=== PATIENT | female | born 1990 | race American Indian/Alaskan Native ===

== ENCOUNTER 2017-07-23 12:23 | Emergency (ER) | payer SELFPAY ==
[2017-07-23 13:05] LABS: Basophils # (Auto) 0.1 K/mm3 (0.0-0.1); Basophils % (Auto) 0.3 % (0.0-1.8); Eosinophils % (Auto) 0.1 % (0.0-4.3); Hematocrit 39.6 % (30.3-42.9); Hemoglobin 13.9 gm/dl (10.1-14.3); Lymphocytes # (Auto) 2.4 K/mm3 (1.2-5.4); Lymphocytes % (Auto) 13.3 % (13.4-35.0); Mean Corpuscular HGB Conc 35 % (30-34); Mean Corpuscular Hemoglobin 32 pg (28-32); Mean Corpuscular Volume 91 fl (79-97); Monocytes # (Auto) 1.2 K/mm3 (0.0-0.8); Monocytes % (Auto) 6.7 % (0.0-7.3); Platelet Count 266 K/mm3 (140-440); Red Blood Count 4.36 M/mm3 (3.65-5.03); Red Cell Distribution Width 13.8 % (13.2-15.2)
[2017-07-23] MEDS ORDERED: ZOFRAN ODT ONE (13:09)
[2017-07-23 13:27] LABS: Alanine Aminotransferase 14 units/L (7-56); Albumin 4.6 g/dL (3.9-5); BUN/Creatinine Ratio 19; Blood Urea Nitrogen 13 mg/dL (7-17); Calcium 9.6 mg/dL (8.4-10.2); Hemolysis Index 7; Lipase 22 units/L (13-60)
[2017-07-23] MEDS ORDERED: ZOFRAN IV ONE ×2 (14:56→16:01)
[2017-07-23] MEDS ORDERED: PEPCID IV ONE (16:01)
[2017-07-23] MEDS ORDERED: MORPHINE IV ONE ×2 (16:01→17:50)
[2017-07-23] MEDS ORDERED: REGLAN IV ONE (16:02)
[2017-07-23] MEDS ORDERED: K-DUR PO ONE (16:02)
[2017-07-23] MEDS ORDERED: BENADRYL IV ONE (16:02)
--- NOTE | 2017-07-23 16:10 | Emergency Department Report ---
Blank Doc - Documentation Documentation: 26-year-old female with no symptoms in past medical or surgical history presents to the hospital complaints of continued nausea, vomiting, and diarrhea for the past 4 days. Patient now stating she's having blood streaked vomitus. Vomiting is worsening diarrhea. She complains of epigastric abdominal pain that is severe in intensity, constant, worse with palpation. Patient was seen at another hospital [facility] last night and had a CT head, CT abdomen and pelvis, received IV fluids and nausea medication. Patient states that imaging tests were negative, she felt better after discharge, and her diagnosis was gastritis. She was prescribed 2 medications including a nausea medication which she has not yet filled because she did not have a ride. She felt worse today so she came back to the hospital. labs reviewed mag added ua pending orders: zofran, reglan, benadryl, morphine, Pepcid, NS Mid-level to follow
[2017-07-23] MEDS ORDERED: D5NS 1,000 ML IV SCH (17:00)
--- NOTE | 2017-07-23 17:58 | Emergency Department Report ---
ED N/V/D HPI - General Chief complaint: Abdominal Pain Stated complaint: ABD PAIN Time Seen by Provider: 07/23/17 15:24 Source: patient, family Mode of arrival: Wheelchair Limitations: No Limitations - History of Present Illness Initial comments: 26-year-old female with no symptoms in past medical or surgical history presents to the hospital complaints of continued nausea, vomiting, and diarrhea for the past 4 days. Patient now stating she's having blood streaked vomitus. Vomiting is worsening diarrhea. She complains of epigastric abdominal pain that is severe in intensity, constant, worse with palpation. Patient was seen at another hospital [facility] last night and had a CT head, CT abdomen and pelvis, received IV fluids and nausea medication. Patient states that imaging tests were negative, she felt better after discharge, and her diagnosis was gastritis. She was prescribed 2 medications including a nausea medication which she has not yet filled because she did not have a ride. She felt worse today so she came back to the hospital. MD complaint: nausea, vomiting, diarrhea, abdominal pain Onset/Timin -: days(s) Description of Vomiting: bilious Description of Diarrhea: water Associated Abdominal Pain: Yes Location: epigastric Radiation: none Severity: moderate Pain Scale: 5 Quality: other (sore) Consistency: constant Improves with: none Worsens with: movement, other (palpation) Context: foreign travel (patient visiting from [place]), other (chronic gastritis) Associated Symptoms: loss of appetite, nausea/vomiting, weakness, other (shaky) . denies: myalgias, chest pain, cough, diaphoresis, fever/chills, headaches, malaise, rash, dysuria, shortness of breath, syncope - Related Data Previous Rx's Medication Instructions Recorded Last Taken Type Dicyclomine [Bentyl] 40 mg PO Q6H 3 Days #12 tablet 07/23/17 Unknown Rx Potassium Chloride [K-Dur] 20 meq PO BID 3 Days #6 tab 07/23/17 Unknown Rx Allergies Allergy/AdvReac Type Severity Reaction Status Date / Time No Known Allergies Allergy Unverified 07/23/17 12:33 ED Review of Systems ROS: Stated complaint: ABD PAIN Other details as noted in HPI Constitutional: weakness. denies: chills, fever Eyes: denies: eye pain, vision change ENT: denies: ear pain, throat pain, congestion Respiratory: denies: cough, orthopnea, shortness of breath, SOB with exertion, SOB at rest, stridor, wheezing Cardiovascular: denies: chest pain, palpitations, edema, syncope Gastrointestinal: abdominal pain, nausea, vomiting, diarrhea. denies: constipation, hematemesis, melena, hematochezia Genitourinary: denies: urgency, dysuria, frequency, hematuria, discharge Musculoskeletal: denies: back pain, joint swelling, arthralgia, myalgia Skin: denies: rash, lesions Neurological: weakness. denies: headache, numbness, paresthesias, confusion, abnormal gait, vertigo Psychiatric: anxiety Hematological/Lymphatic: denies: easy bleeding ED Past Medical Hx - Past Medical History Previous Medical History?: Yes Additional medical history: gastritis - Surgical History Past Surgical History?: No - Family History Family history: hypertension - Social History Smoking Status: Never Smoker Substance Use Type: None Other Social History: Patient lives in [place] and she is visiting and will be returning in one week - Medications Home Medications: Home Medications Medication Instructions Recorded Confirmed Last Taken Type Dicyclomine [Bentyl] 40 mg PO Q6H 3 Days #12 tablet 07/23/17 Unknown Rx Potassium Chloride [K-Dur] 20 meq PO BID 3 Days #6 tab 07/23/17 Unknown Rx ED Physical Exam - General Limitations: No Limitations General appearance: alert, anxious - Head Head exam: Present: atraumatic, normocephalic, normal inspection - Eye Eye exam: Present: normal appearance, PERRL, EOMI Pupils: Present: normal accommodation - ENT ENT exam: Present: normal orophraynx, mucous membranes dry, TM's normal bilaterally, normal external ear exam - Neck Neck exam: Present: normal inspection, full ROM, other (no C-spine tenderness). Absent: tenderness, lymphadenopathy - Respiratory Respiratory exam: Present: normal lung sounds bilaterally. Absent: respiratory distress, wheezes, rales, rhonchi, stridor, chest wall tenderness, accessory muscle use, decreased breath sounds, prolonged expiratory - Cardiovascular Cardiovascular Exam: Present: regular rate, normal rhythm. Absent: systolic murmur, diastolic murmur - GI/Abdominal GI/Abdominal exam: Present: soft, tenderness (epigastric area), normal bowel sounds. Absent: distended, guarding, rebound, rigid, organomegaly, mass, bruit , pulsatile mass, hernia - Extremities Exam Extremities exam: Present: normal inspection, full ROM, normal capillary refill , other (no clubbing, cyanosis or edema. Positive pulses all extremities and no neurovascular compromise). Absent: tenderness, pedal edema, joint swelling, calf tenderness - Back Exam Back exam: Present: normal inspection, full ROM, other (ambulates without any difficulties). Absent: tenderness, CVA tenderness (R), CVA tenderness (L), muscle spasm, paraspinal tenderness, vertebral tenderness, rash noted - Neurological Exam Neurological exam: Present: alert, oriented X3, normal gait, reflexes normal, other (focal neurological deficit). Absent: motor sensory deficit - Psychiatric Psychiatric exam: Present: normal affect, normal mood - Skin Skin exam: Present: warm, dry, intact, normal color. Absent: rash ED Course Vital Signs 07/23/17 07/23/17 12:26 18:54 Temperature 99.1 F 99.0 F Pulse Rate 80 61 Respiratory 18 14 Rate Blood Pressure 105/51 Blood Pressure 101/60 [Left] O2 Sat by Pulse 100 100 Oximetry - Reevaluation(s) Reevaluation #1: 07/23/17 17:[address] Montano and was given Pepcid 20 mg IV, Benadryl 25 mg IV, morphine 2 mg IV where she had an episode of hysteria. Patient recovered quickly from episode. She appeared to be anxious. Her potassium was 2.9 and she received 40 mEq of potassium by mouth and tolerated well. Patient has no episode of vomiting while in the emergency room. Her vital signs are stable. Reevaluation #2: 07/23/17 18:47 Patient was at another emergency room yesterday where she had CT scan of the abdomen and pelvis per patient. She said she has chronic rest gastritis from childhood. Prescription confirmed via family. She was given Protonix 20 mg and Zofran 4 mg ODT at Hospital yesterday and patient did not get prescription filled. Her cousin is sharp and off prescription as we speak at pharmacists and they will machine operator picker on route from hospital. Abdomen is non-tender to palpate at present. I checked an patient and her vital signs are stable and she says she feels a lot better and sitting up in room Texting. WBC is at 18 and suspect from gastritis due to inflammation. Urinalysis is stable she has 2+ bacteria but patient does not have any leukocyte esterase or white blood cell. I will send urine culture. Patient is currently visiting from [place] and will be returning in 1 week per patient Reevaluation #3: 07/23/17 19:28 Patient is stable and so she is feeling much better and she is ready to go. Tolerating by mouth fluids without any difficulties. No further anxiety. Abdomen is nontender to palpate ED Medical Decision Making - Lab Data Result diagrams: 07/23/17 12:52 07/23/17 12:52 Lab Results 07/23/17 07/23/17 07/23/17 Range/Units 12:52 12:52 12:52 WBC 18.0 H (4.5-11.0) K/mm3 RBC 4.36 (3.65-5.03) M/mm3 Hgb 13.9 (10.1-14.3) gm/dl Hct 39.6 (30.3-42.9) % MCV 91 (79-97) fl MCH 32 (28-32) pg MCHC 35 H (30-34) % RDW 13.8 (13.2-15.2) % Plt Count 266 (140-440) K/mm3 Lymph % (Auto) 13.3 L (13.4-35.0) % Hitchcock % (Auto) 6.7 (0.0-7.3) % Eos % (Auto) 0.1 (0.0-4.3) % Baso % (Auto) 0.3 (0.0-1.8) % Lymph # 2.4 (1.2-5.4) K/mm3 Hitchcock # 1.2 H (0.0-0.8) K/mm3 Eos # 0.0 (0.0-0.4) K/mm3 Baso # 0.1 (0.0-0.1) K/mm3 Seg Neutrophils % 79.6 H (40.0-70.0) % Seg Neutrophils # 14.3 H (1.8-7.7) K/mm3 Sodium 140 (137-145) mmol/L Potassium 2.9 L* (3.6-5.0) mmol/L Chloride 99.9 (98-107) mmol/L Carbon Dioxide 22 (22-30) mmol/L Anion Gap 21 mmol/L BUN 13 (7-17) mg/dL Creatinine 0.7 (0.7-1.2) mg/dL Estimated GFR > 60 ml/min BUN/Creatinine Ratio 19 % Glucose 104 H (65-100) mg/dL Calcium 9.6 (8.4-10.2) mg/dL Magnesium (1.7-2.3) mg/dL Total Bilirubin 0.60 (0.1-1.2) mg/dL AST 18 (5-40) units/L ALT 14 (7-56) units/L Alkaline Phosphatase 94 (35-129) units/L Total Protein 7.5 (6.3-8.2) g/dL Albumin 4.6 (3.9-5) g/dL Albumin/Globulin Ratio 1.6 % Lipase 22 (13-60) units/L HCG, Qual Negative (Negative) Urine Color (Yellow) Urine Turbidity (Clear) Urine pH (5.0-7.0) Ur Specific [place] (1.003-1.030) Urine Protein (Negative) mg/dL Urine Glucose (UA) (Negative) mg/dL Urine Ketones (Negative) mg/dL Urine Blood (Negative) Urine Nitrite (Negative) Urine Bilirubin (Negative) Urine Urobilinogen (<2.0) mg/dL Ur Leukocyte Esterase (Negative) Urine WBC (Auto) (0.0-6.0) /HPF Urine RBC (Auto) (0.0-6.0) /HPF U Epithel Cells (Auto) (0-13.0) /HPF Urine Bacteria (Auto) (Negative) /HPF Amorphous Crystals Urine Mucus /HPF 07/23/17 07/23/17 Range/Units 12:52 17:08 WBC (4.5-11.0) K/mm3 RBC (3.65-5.03) M/mm3 Hgb (10.1-14.3) gm/dl Hct (30.3-42.9) % MCV (79-97) fl MCH (28-32) pg MCHC (30-34) % RDW (13.2-15.2) % Plt Count (140-440) K/mm3 Lymph % (Auto) (13.4-35.0) % Hitchcock % (Auto) (0.0-7.3) % Eos % (Auto) (0.0-4.3) % Baso % (Auto) (0.0-1.8) % Lymph # (1.2-5.4) K/mm3 Hitchcock # (0.0-0.8) K/mm3 Eos # (0.0-0.4) K/mm3 Baso # (0.0-0.1) K/mm3 Seg Neutrophils % (40.0-70.0) % Seg Neutrophils # (1.8-7.7) K/mm3 Sodium (137-145) mmol/L Potassium (3.6-5.0) mmol/L Chloride (98-107) mmol/L Carbon Dioxide (22-30) mmol/L Anion Gap mmol/L BUN (7-17) mg/dL Creatinine (0.7-1.2) mg/dL Estimated GFR ml/min BUN/Creatinine Ratio % Glucose (65-100) mg/dL Calcium (8.4-10.2) mg/dL Magnesium 2.30 (1.7-2.3) mg/dL Total Bilirubin (0.1-1.2) mg/dL AST (5-40) units/L ALT (7-56) units/L Alkaline Phosphatase (35-129) units/L Total Protein (6.3-8.2) g/dL Albumin (3.9-5) g/dL Albumin/Globulin Ratio % Lipase (13-60) units/L HCG, Qual (Negative) Urine Color Yellow (Yellow) Urine Turbidity Clear (Clear) Urine pH 7.0 (5.0-7.0) Ur Specific [place] 1.026 (1.003-1.030) Urine Protein 30 mg/dl (Negative) mg/dL Urine Glucose (UA) Neg (Negative) mg/dL Urine Ketones 20 (Negative) mg/dL Urine Blood Neg (Negative) Urine Nitrite Neg (Negative) Urine Bilirubin Neg (Negative) Urine Urobilinogen < 2.0 (<2.0) mg/dL Ur Leukocyte Esterase Neg (Negative) Urine WBC (Auto) 6.0 (0.0-6.0) /HPF Urine RBC (Auto) 9.0 (0.0-6.0) /HPF U Epithel Cells (Auto) 2.0 (0-13.0) /HPF Urine Bacteria (Auto) 2+ (Negative) /HPF Amorphous Crystals 3+ Urine Mucus 2+ /HPF Urine culture pending - Medical Decision Making ED course: Diagnosis: 1: Abdominal pain, epigastric patient with history of chronic gastritis -Patient was seen and emergency room yesterday and CT scan of abdomen and pelvis with IV contrast was done and she says she was told that she has gastritis which is chronic. -Prescription noted for Protonix and Zofran ODT the patient did not fill prescription fear for her nausea vomiting and abdominal pain continued dictation was not taking medication as prescribed. -Patient given morphine 2 mg IV in the emergency room and she had feeding anxiety which has resolved. She was also given until 40 mg by mouth. Patient is now feeling better and her abdomen is nontender to palpate. -Patient has prescription for Protonix that was given yesterday at another facility and she has with her and I discussed with her that she needs to take this the pharmacy to get filled before she reached home. I'll also be prescribing Bentyl for her to go home. -Information given on medication to avoid such as NSAIDs and aspirin and food to avoid with gastritis. 2: Nausea vomiting and diarrhea -Patient was retching in when she came to emergency room but no episodes of nausea vomiting or diarrhea since emergency room. -Patient was given D5 normal saline 1 L, Pepcid 20 mg IV, Reglan 10 mg IV, Zofran 8 mg IV in 4 mg increments and now she said her nausea is better and patient able to drink oral liquid without any nausea vomiting. -Patient has prescription with her now for Zofran ODT and I discussed with her that she needs to take it to the pharmacy to be filled before she reached home. -BRAT Diet explained 3: Hypokalemia with potassium of 2.9 -Patient given potassium 40 mEq by mouth in emergency room and tolerated well. -Patient will be discharged home with potassium for 3 days. 4:Leukocytosis -Suspect from prolonged nausea vomiting, gastritis, inflammation -Patient will be referred to [facility] for follow-up. She does not have a primary care physician 5: Dehydration-urinalysis with 20 ketones. She also has asymptomatic bacteriuria at 2+ and urine will be sent for culture. : Corrected with IV fluid and tolerating by mouth liquids well. 6: Anxiety about health -Patient given Benadryl 25 mg IV and now resolved. Patient is stable and discharged home with her family. Patient has prescription which her family brought in for Protonix and Zofran and I will add prescription for Bentyl and potassium. I discussed with her that she needs to follow up at [facility] in one to 2 days for follow-up abdominal pain and to have repeat lab work drawn and if her condition worsens to return to the emergency room. Patient is visiting from [place] and she states she is due to go back next Sunday. She has a history of chronic gastritis. Patient and family voiced understanding of discharge diagnosis, need to fill prescription to treat gastritis, nausea vomiting and diarrhea to prevent from coming back to the emergency room unless she is feeling worse, diet and potassium repletion. Abdomen her family in stable condition. She says she is feeling better and her anxiety has resolved. Critical care attestation.: If time is entered above; I have spent that time in minutes in the direct care of this critically ill patient, excluding procedure time. ED Disposition Clinical Impression: Nausea vomiting and diarrhea, Anxiety about health, Noncompliance with medication regimen, Acute hypokalemia, Dehydration Abdominal pain Qualifiers: Abdominal location: unspecified location Qualified Code(s): R10.9 - Unspecified abdominal pain Leukocytosis, unspecified Qualifiers: Leukocytosis type: unspecified Qualified Code(s): D72.829 - Elevated white blood cell count, unspecified Disposition: TO HOME OR SELFCARE Is pt being admited?: No Does the pt Need Aspirin: No Condition: Stable Instructions: Abdominal Pain (ED), Acute Nausea and Vomiting (ED), Gastritis ( ED), Diet for Ulcers and Gastritis (ED), Hypokalemia (ED), Leukocytosis (ED), Nutrition Tips for Relief of Diarrhea (ED), Anxiety (ED), Acute Diarrhea (ED), Dehydration (ED) Additional Instructions: Please avoid spicy food and/or carbonated beverages. Eat banana, rice, applesauce and toast over the next 72 hours after taking potassium over 3 days. Start this diet after he completed potassium regime Please do not take any medication and has aspirin, NSAIDs as this can trigger gastritis and cause leading. Please get you. Prescription that was ordered yesterday at another facility filled today and also prescription that was given at this facility Ensure he take potassium as you potassium was low today. Increase her fluid intake to at least 2 L of water and Gatorade daily. Follow-up with outside Medical Center in one to 2 days for repeat labs and follow-up nausea vomiting diarrhea and abdominal pain but if your condition worsens return to the emergency room. See discharge instructions on multiple diagnosis Prescriptions: Dicyclomine [Bentyl] 40 mg PO Q6H 3 Days #12 tablet Potassium Chloride [K-Dur] 20 meq PO BID 3 Days #6 tab [facility] - 07/24/17 [facility] [Provider Group] - 07/25/17 Forms: Accompanied Note
[2017-07-23 18:06] LABS: Amorphous Crystals,Urine 3+; Bacteria,Urine 2+ /HPF (Negative); Bilirubin,Urine NEG (Negative); Blood,Urine NEG (Negative); Color,Urine Yellow (Yellow); Mucus,Urine 2+ /HPF; Urobilinogen,Urine < 2.0 mg/dL (<2.0)
[2017-07-23 18:56] VITALS: BP 101/60
[2017-07-23] MEDS ORDERED: BENTYL PO ONE (19:00)
== END 2017-07-23 19:50 | disposition home or self-care (01) ==
LOC: ED 12:23
DX: D72.829 Elevated white blood cell count, unspecified (principal); F41.9 Anxiety disorder, unspecified; E87.6 Hypokalemia; E86.0 Dehydration
CPT/HCPCS: 36415; 80053; 81001; 83690; 83735; 84703; 85025; 87086; 96361; 96374; 96375; 96376; 99283; J1200; J2270; J2405; J2765; J7042; Q0162

== ENCOUNTER 2017-07-24 09:51 | Emergency (ER) | payer SELFPAY ==
[2017-07-24 10:55] VITALS: BP 141/66
[2017-07-24] MEDS ORDERED: GEODON IM ONE (11:56)
[2017-07-24] MEDS ORDERED: ZOFRAN IV ONE (11:56)
--- NOTE | 2017-07-24 12:05 | Emergency Department Report ---
ED Abdominal Pain HPI - General Chief Complaint: Nausea/Vomiting/Diarrhea Stated Complaint: VOMITING Time Seen by Provider: 07/24/17 11:13 Source: patient, EMS Mode of arrival: Ambulatory Limitations: Language Barrier - History of Present Illness Initial Comments: Patient is a 26-year-old female who is been here multiple times for nausea vomiting. Patient has been diagnosed with gastroparesis. Patient was seen here today and our last visit putting her fingers into her throat to induce vomiting. Patient has been given prescriptions for Zofran and Bentyl she has not gotten these medications filled. Patient states she has nausea vomiting and epigastric discomfort. Patient had a CT scan within the last week that was within normal limits. She was seen yesterday and had a slightly decreased potassium level which was corrected. Patient has stable vital signs at this time. 6 out of 10 in severity and is crampy in nature. - Related Data Previous Rx's Medication Instructions Recorded Last Taken Type Dicyclomine [Bentyl] 40 mg PO Q6H 3 Days #12 tablet 07/23/17 Unknown Rx Potassium Chloride [K-Dur] 20 meq PO BID 3 Days #6 tab 07/23/17 Unknown Rx Allergies Allergy/AdvReac Type Severity Reaction Status Date / Time No Known Allergies Allergy Unverified 07/23/17 12:33 ED Review of Systems ROS: Stated complaint: VOMITING Other details as noted in HPI Comment: All other systems reviewed and negative ED Past Medical Hx - Past Medical History Previous Medical History?: Yes Additional medical history: gastritis - Surgical History Past Surgical History?: No - Social History Smoking Status: Former Smoker - Medications Home Medications: Home Medications Medication Instructions Recorded Confirmed Last Taken Type Dicyclomine [Bentyl] 40 mg PO Q6H 3 Days #12 tablet 07/23/17 Unknown Rx Potassium Chloride [K-Dur] 20 meq PO BID 3 Days #6 tab 07/23/17 Unknown Rx ED Physical Exam - General Limitations: Language Barrier General appearance: alert, in no apparent distress - Head Head exam: Present: atraumatic, normocephalic - Eye Eye exam: Present: normal appearance - ENT ENT exam: Present: mucous membranes moist - Neck Neck exam: Present: normal inspection - Respiratory Respiratory exam: Present: normal lung sounds bilaterally. Absent: respiratory distress, wheezes, rales, rhonchi - Cardiovascular Cardiovascular Exam: Present: regular rate, normal rhythm. Absent: systolic murmur, diastolic murmur, rubs, gallop - GI/Abdominal GI/Abdominal exam: Present: soft, normal bowel sounds. Absent: distended, tenderness, guarding, rebound - Extremities Exam Extremities exam: Present: normal inspection - Back Exam Back exam: Present: normal inspection - Neurological Exam Neurological exam: Present: alert, oriented X3 - Psychiatric Psychiatric exam: Present: normal affect, normal mood - Skin Skin exam: Present: warm, dry, intact, normal color. Absent: rash ED Course Vital Signs 07/24/17 10:49 Temperature 98.2 F Pulse Rate 67 Respiratory 20 Rate Blood Pressure 141/66 O2 Sat by Pulse 99 Oximetry ED Medical Decision Making - Medical Decision Making Patient was given Zofran as well as Geodon and will be discharged home. Critical care attestation.: If time is entered above; I have spent that time in minutes in the direct care of this critically ill patient, excluding procedure time. ED Disposition Clinical Impression: Gastroparesis Disposition: DC-01 TO HOME OR SELFCARE Is pt being admited?: No Does the pt Need Aspirin: No Condition: Stable Referrals: PRIMARY CARE, [Primary Care Provider] - 3-5 Days
== END 2017-07-24 12:12 | disposition home or self-care (01) ==
LOC: ED 09:51
DX: K31.84 Gastroparesis (principal); Z87.891 Personal history of nicotine dependence
CPT/HCPCS: 96372; 96374; 99283; J2405; J3486